=== PATIENT | female | born 1945 | race Caucasian/White ===

== ENCOUNTER 2020-07-15 14:45 | Outpatient (CLI) | payer MEDICARE, MEDICAID, SELFPAY ==
[2020-07-15 16:12] LABS: Basophils Absolute Auto 0.1 K/mm3 (0.0-0.1); Basophils Percent Auto 0.8 % (0.2-1.2); Eosinophils Absolute Auto 0.2 K/mm3 (0-0.3); Eosinophils Percent Auto 2.4 % (0-4.4); Hematocrit 38.5 % (37.0-47.0); Hemoglobin 12.6 g/dL (12.0-15.0); Immature Granulocyte Absolute 0.06 K/mm3 (0.00-0.031); Immature Granulocyte Percent A 0.7 % (0-0.5); Lymphocytes Absolute Auto 1.76 K/mm3 (0.9-3.2); Lymphocytes Percent Auto 19.2 % (18.3-44.2); Mean Corpuscular HGB Conc 32.7 g/dl (32-36); Mean Corpuscular Hemoglobin 30.1 pg (26-34); Mean Corpuscular Volume 92.1 fl (80-100); Mean Platelet Volume 9.7 fl (7.4-10.4); Monocytes Absolute Auto 0.4 K/mm3 (0.1-0.6); Monocytes Percent Auto 4.1 % (2.6-8.5); Neutrophils Absolute Auto 6.7 K/mm3 (1.3-6.7); Neutrophils Percent Auto 72.8 % (45.5-73.1); Platelet Count Result 257 k/mm3 (150-375); Red Blood Count 4.18 M/mm3 (4.2-5.4); Red Cell Distribution Width 13.9 % (11.5-14.5); White Blood Count 9.2 K/mm3 (4.5-10.0)
[2020-07-15 16:58] LABS: Cholesterol 214 mg/dL (0-200); HDL Direct 44 mg/dL; Phosphorus 4.3 mg/dL (2.5-4.5); Triglycerides 170 mg/dL (<150)
[2020-07-15 17:09] LABS: LDL Cholesterol Direct 142 mg/dL
[2020-07-15 17:17] LABS: Alanine Aminotransferase 20 U/L (4-35); Albumin Level 3.6 g/dL (3.5-5.1); Alkaline Phosphatase 79 U/L (38-126); Anion Gap 9 mmol/L (8-16); Aspartate Amino Transferase 24 U/L (14-36); Bilirubin,Total 0.4 mg/dL (0.2-1.3); Blood Urea Nitrogen 18 mg/dL (7-17); Calcium 9.1 mg/dL (8.4-10.2); Carbon Dioxide 31 mmol/L (22-30); Chloride 101 mmol/L (98-107); Estimated Glomerular Filt Rate 54; Glucose 263 mg/dL (65-105); Potassium 4.3 mmol/L (3.4-5.0); Sodium 141 mmol/L (137-145)
[2020-07-15 18:33] LABS: Parathyroid Intact 121.7 pg/mL (7.5-53.5)
[2020-07-15 18:49] LABS: Hemoglobin A1C 8.5 % (<5.7)
[2020-07-17 04:49] LABS: Ionized Calcium 4.8 mg/dL (4.8-5.6)
[2020-07-18 11:56] LABS: Vitamin D 1,25 (OH)2 Total 49 pg/mL (18-72); Vitamin D2 1,25 (OH)2 <8 pg/mL; Vitamin D3 1,25 (OH)2 49 pg/mL
== END 2020-07-15 14:46 | disposition home or self-care (01) ==
LOC: ANHLAB 14:50
PROVIDERS: PCP Internal Medicine; Visit Provider Internal Medicine Endocrinology, Diabetes & Metabolism
DX: E11.41 Type 2 diabetes mellitus with diabetic mononeuropathy (principal); Z79.4 Long term (current) use of insulin; H11.31 Conjunctival hemorrhage, right eye; E21.3 Hyperparathyroidism, unspecified
CPT/HCPCS: 36415; 80053; 80061; 82306; 82330; 82652; 83036; 83970; 84100; 85025

== ENCOUNTER → 2021-01-14 10:20 | Outpatient (REF) | payer MEDICARE, MEDICAID, SELFPAY | LOC: ANHLAB 10:20 | PROVIDERS: PCP Internal Medicine; Visit Provider Nurse Practitioner | DX: D22.5 Melanocytic nevi of trunk (principal) | CPT/HCPCS: 88305 ==

== ENCOUNTER 2021-01-17 10:27 | Outpatient (CLI) | payer MEDICARE, MEDICAID, SELFPAY ==
[2021-01-17 10:58] LABS: Basophils Absolute Auto 0.1 K/mm3 (0.0-0.1); Basophils Percent Auto 0.6 % (0.2-1.2); Eosinophils Absolute Auto 0.3 K/mm3 (0-0.3); Eosinophils Percent Auto 3.6 % (0-4.4); Hematocrit 35.6 % (37.0-47.0); Hemoglobin 11.3 g/dL (12.0-15.0); Immature Granulocyte Absolute 0.07 K/mm3 (0.00-0.031); Immature Granulocyte Percent A 0.7 % (0-0.5); Lymphocytes Absolute Auto 1.48 K/mm3 (0.9-3.2); Lymphocytes Percent Auto 15.5 % (18.3-44.2); Mean Corpuscular HGB Conc 31.7 g/dl (32-36); Mean Corpuscular Hemoglobin 29.4 pg (26-34); Mean Corpuscular Volume 92.7 fl (80-100); Mean Platelet Volume 9.8 fl (7.4-10.4); Monocytes Absolute Auto 0.6 K/mm3 (0.1-0.6); Monocytes Percent Auto 6.2 % (2.6-8.5); Neutrophils Percent Auto 73.4 % (45.5-73.1); Platelet Count Result 270 k/mm3 (150-375); Red Blood Count 3.84 M/mm3 (4.2-5.4); Red Cell Distribution Width 13.9 % (11.5-14.5); White Blood Count 9.5 K/mm3 (4.5-10.0)
[2021-01-17 11:10] LABS: Alanine Aminotransferase 13 U/L (4-35); Albumin Level 3.4 g/dL (3.5-5.1); Alkaline Phosphatase 70 U/L (38-126); Anion Gap 3 mmol/L (8-16); Aspartate Amino Transferase 21 U/L (14-36); Bilirubin,Total 0.3 mg/dL (0.2-1.3); Blood Urea Nitrogen 16 mg/dL (7-17); Calcium 8.5 mg/dL (8.4-10.2); Carbon Dioxide 35 mmol/L (22-30); Chloride 98 mmol/L (98-107); Cholesterol 209 mg/dL (0-200); Estimated Glomerular Filt Rate > 60; Glucose 278 mg/dL (65-105); HDL Direct 41 mg/dL; Potassium 4.5 mmol/L (3.4-5.0); Sodium 136 mmol/L (137-145); Triglycerides 127 mg/dL (<150)
[2021-01-17 11:21] LABS: LDL Cholesterol Direct 133 mg/dL
== END 2021-01-17 10:28 | disposition home or self-care (01) ==
LOC: ANHLAB 10:31
PROVIDERS: PCP Internal Medicine; Visit Provider Internal Medicine
DX: E03.9 Hypothyroidism, unspecified (principal); E11.9 Type 2 diabetes mellitus without complications; I10 Essential (primary) hypertension; E11.41 Type 2 diabetes mellitus with diabetic mononeuropathy; Z79.4 Long term (current) use of insulin; I25.10 Atherosclerotic heart disease of native coronary artery without angina pectoris; F33.0 Major depressive disorder, recurrent, mild; I48.0 Paroxysmal atrial fibrillation; E78.5 Hyperlipidemia, unspecified
CPT/HCPCS: 36415; 80053; 80061; 83036; 84443; 85025

== ENCOUNTER 2021-02-18 10:33 | Outpatient (CLI) | payer MEDICARE, MEDICAID, SELFPAY ==
--- NOTE | ~2021-02-18 | CT_ITS ---
EXAMINATION:CT diagnostic chest wo con DATE: 02/18/2021 11:12 INDICATION: Other specified symptoms and signs involving the circulatory and respiratory systems. TECHNIQUE: Computed tomography (CT) of the chest was performed without intravenous contrast. Automate d exposure control and iterative reconstruction technique were employed. The dose-length product (DLP ) was 213.61 mGy-cm. COMPARISON: Chest CT 02/20/2013, CT abdomen and pelvis 08/27/2017 FINDINGS: There is mosaic attenuation in the lungs, likely small airways disease. There are mild grou ndglass opacities involving all lobes. There is mild chronic peripheral septal thickening in the infe rior lungs. There is mild atelectasis in all lobes, worst in right upper lobe. No bronchiectasis or h oneycombing. A calcified right lung nodule and calcified right hilar and mediastinal lymph nodes are consistent with old granulomatous disease. No pleural effusion. Cardiomegaly is noted. There are aly nary artery calcifications. There are calcifications of aortic valve. No pericardial effusion. There is a left chest wall pacer with leads in the right atrium and right ventricle. The central pulmonary arteries are enlarged, consistent with pulmonary arterial hypertension. There is a small sliding hiat al hernia. Calcifications in the spleen are consistent with old granulomatous disease. There are guerra ges of cholecystectomy. There is severe thoracic spondylosis. IMPRESSION: 1. Worsened chronic diffuse lung disease, likely chronic hypersensitivity pneumonitis or post-infecti ous constrictive bronchiolitis. 2. Cardiomegaly. 3. Small sliding hiatal hernia. Reviewed, dictated and finalized at location A. IMPRESSION: 1. Worsened chronic diffuse lung disease, likely chronic hypersensitivity pneum onitis or post-infectious constrictive bronchiolitis. 2. Cardiomegaly. 3. Small sliding hiatal hernia.
== END 2021-02-18 10:34 | disposition home or self-care (01) ==
PROVIDERS: PCP Internal Medicine; Visit Provider Nurse Practitioner Family
DX: I51.7 Cardiomegaly (principal); K44.9 Diaphragmatic hernia without obstruction or gangrene; I25.10 Atherosclerotic heart disease of native coronary artery without angina pectoris
CPT/HCPCS: 71250

== ENCOUNTER 2021-03-04 11:25 | Outpatient (CLI) | payer MEDICARE, MEDICAID, SELFPAY ==
[2021-03-04 12:14] LABS: Albumin Level 3.5 g/dL (3.5-5.1); Anion Gap 5 mmol/L (8-16); Blood Urea Nitrogen 24 mg/dL (7-17); Calcium 8.7 mg/dL (8.4-10.2); Carbon Dioxide 33 mmol/L (22-30); Chloride 98 mmol/L (98-107); Estimated Glomerular Filt Rate 40; Glucose 274 mg/dL (65-105); Phosphorus 4.4 mg/dL (2.5-4.5); Potassium 4.4 mmol/L (3.4-5.0); Sodium 136 mmol/L (137-145)
[2021-03-04 12:26] LABS: Creatinine Urine 89.5 mg/dL; Total Protein Urine Random 14 mg/dL; Ur Ttl Prot Creatinine Ratio 0.16 mg/mg (0-0.20)
== END 2021-03-04 11:26 | disposition home or self-care (01) ==
PROVIDERS: PCP Internal Medicine; Visit Provider Internal Medicine Nephrology
DX: R80.1 Persistent proteinuria, unspecified (principal)
CPT/HCPCS: 36415; 80069; 82570; 84156

== ENCOUNTER 2021-03-28 09:02 | Outpatient (RCR) | payer MEDICARE, MEDICAID, SELFPAY ==
[2021-03-28 13:51] VITALS: BMI 32.9
== END 2021-05-06 12:18 | disposition home or self-care (01) ==
LOC: ANHWOC 09:02
PROVIDERS: PCP Internal Medicine; Visit Provider Internal Medicine
DX: I83.028 Varicose veins of left lower extremity with ulcer other part of lower leg (principal); L97.821 Non-pressure chronic ulcer of other part of left lower leg limited to breakdown of skin
CPT/HCPCS: 99212; G0463

== ENCOUNTER 2021-05-20 09:54 | Outpatient (CLI) | payer MEDICARE, MEDICAID, SELFPAY ==
--- NOTE | ~2021-05-20 | CT_ITS ---
EXAMINATION: CT diagnostic chest wo con EXAM DATE: 05/20/2021 10:38 INDICATION: COPD. Other disorders of lung . TECHNIQUE: Spiral CT of the chest without contrast. Axial, coronal and sagittal images of the chest were reviewed. Coronal maximum intensity pixel images of chest reviewed. The dose-length product ( DLP) for this examination was 245.21 mGy-cm. The exposure was tailored according to patient size (au to mA exposure control), and iterative reconstruction (ASIR) was used as additional dose reduction te chnique. Comparison is made to prior examination from 02/18/2021. FINDINGS: There is mild bronchiectasis. Unchanged chronic mosaic attenuation involving both lungs. T his is suspected to be most likely air trapping, small airways disease. Differential diagnosis for t his includes air trapping (asthma, bronchiolitis obliterans), vasculitis, or groundglass opacity. Gr oundglass opacity can be caused acutely by edema, infection (PCP in an immunocompromised patients) or hemorrhage. It can also be caused by chronic processes such as hypersensitivity pneumonitis, nonspe cific interstitial pneumonitis (NSIP), cryptogenic organized pneumonia, desquamative interstitial pne umonitis(DIP). Right upper lobe calcified granuloma. No suspicious pulmonary nodules. There are no pleural or perica rdial effusions. Tracheobronchial tree is patent. There is no mediastinal, hilar or axillary lymp hadenopathy. There is no pneumothorax. Heart normal in size. There are dense coronary arteries, could be severe coronary arterial sclerosis and/or coronary artery stent(s), which are difficult to distinguish due to cardiac motion on this non-gated exam. Correlate with cardiac history. Cholecyste ctomy clips. There is thoracic spondylosis without osteoblastic or osteolytic lesions identified. IMPRESSION: 1. Unchanged mosaic attenuation probably air trapping but some other considerations above. 2. Mild bronchiectasis. Reviewed, dictated and finalized at location A. IMPRESSION: 1. Unchanged mosaic attenuation probably air trapping but some other considera tions above. 2. Mild bronchiectasis.
== END 2021-05-20 09:55 | disposition home or self-care (01) ==
PROVIDERS: PCP Internal Medicine; Visit Provider Nurse Practitioner Family
DX: J98.4 Other disorders of lung (principal); Z86.16 Personal history of COVID-19; J47.9 Bronchiectasis, uncomplicated; R91.8 Other nonspecific abnormal finding of lung field
CPT/HCPCS: 71250

== ENCOUNTER 2021-05-29 12:58 | Outpatient (CLI) | payer MEDICARE, MEDICAID, SELFPAY ==
[2021-05-29 13:20] VITALS: O2SAT 98
[2021-05-29 13:25] VITALS: O2SAT 99
[2021-05-29 13:30] VITALS: O2SAT 95
--- NOTE | 2021-05-29 14:16 | HOMEO2EVAL ---
Evaluation was performed at [facility] Home Oxygen Evaluation RC: Home Oxygen (O2) Evaluation Start: 05/29/21 14:14 Freq: Status: Active Protocol: RPE Activity Type Activity Date Activity User E-Sign Co-Sign Detail Recorded Client Recorded Date Recorded By Document 05/29/21 13:20 NALINI [id number] 05/29/21 14:16 NALINI Document 05/29/21 13:25 NALINI [id number] 05/29/21 14:16 NALINI Document 05/29/21 13:30 NALINI [id number] 05/29/21 14:16 NALINI 05/29/21 05/29/21 05/29/21 13:20 13:25 13:30 Home O2 Evaluation Test Phase Resting Exercise Resting Oxygen Delivery Room Air Room Air Room Air Pulse Oximetry (90-100 %) 98 99 95 Home Oxygen Evaluation Comments Pt walked 200 feet, stopped and sat down at 100 feet. SOB and weak Treatment Charges O2 Evaluation - Outpatient
--- NOTE | 2021-05-29 16:41 | WPDPFTINT ---
PFT Procedure Performed PFT Procedure Performed Spirometry with Pre/Post Bronchodilator Plethysmography (Lung Vol) Flow Vol Loop PFT Interpretation This is a pulmonary function test with pre and post-bronchodilator spirometry and plethysmography. The test was performed and results interpreted in accordance with the 2019 and 2005 ATS/ERS Task Force guidelines respectively using the Global Lung Function Initiative-2012 reference equations. Patient demonstrated good effort and cooperation. Reproducibility criteria were met. The quality of the pre bronchodilator spirometry maneuver was Grade A and post bronchodilator spirometry maneuver was Grade A. of note the patient was unable to complete the DLCO maneuver. Findings: Spirometry: The contour the inspiratory and expiratory flow tracing are normal. The pre bronchodilator FVC is 1.83 L, 78% predicted. The pre bronchodilator FEV1 is 1.50 L, 82% predicted. The FEV1: FVC ratio is 82%. The post bronchodilator FVC is 1.81 L, representing a 1% decrease. The post bronchodilator FEV1 is 1.51 L, representing 1% increase. Plethysmography: The total lung capacity is 4.38 L, 95% predicted. Functional residual capacity is 2.98 L, 113% predicted. The residual volume is 2.33 L, 107% predicted. In comparison to prior pulmonary function test performed on 02/24/2016 the post bronchodilator FVC is unchanged from 2.08-1.81 L. The post bronchodilator FEV1 is unchanged from 1.76 L to 1.51 L. The total lung capacity has increased from 3.54 L to 4.38 L. The functional residual capacity has increased from 2.15 L to 2.98 L. The residual volume has increased from 1.41 L to 2.33 L. Impression: The spirometry is normal without evidence of an obstructive abnormality. There is no significant improvement after inhaling a single dose of albuterol. The lung volumes are normal. in comparison to prior pulmonary function test on 02/24/2016 there has been a greater than anticipated time dependent increase in total lung capacity, functional residual capacity and residual volume with no change in the post bronchodilator FVC or FEV1. Clinical correlation is recommended. There are no prior studies for comparison
== END 2021-05-29 12:59 | disposition home or self-care (01) ==
LOC: ANHPFT 12:59
PROVIDERS: PCP Internal Medicine; Visit Provider Nurse Practitioner Family
DX: R09.02 Hypoxemia (principal); R06.00 Dyspnea, unspecified; Z86.16 Personal history of COVID-19
CPT/HCPCS: 94060; 94618; 94726

== ENCOUNTER 2021-11-06 05:30 | Emergency (ER) | payer MEDICARE, MEDICAID, SELFPAY ==
--- NOTE | ~2021-11-06 | XR_ITS ---
EXAMINATION: XR knee RT 3V DATE: 11/06/2021 05:56 INDICATION: Right knee injury. TECHNIQUE: 3 views of right knee were obtained. COMPARISON: None. FINDINGS: Bone alignment is normal. No fracture. There is diffuse osteopenia. There is mild osteoarth ritis of medial and lateral compartments and moderate osteoarthritis of patellofemoral compartment. N o knee joint effusion. There is a vascular stent in the thigh. IMPRESSION: 1. Moderate right knee osteoarthritis. Reviewed, dictated and finalized at location E. MAN
--- NOTE | ~2021-11-06 | XR_ITS ---
EXAMINATION: XR knee LT 3V DATE: 11/06/2021 05:56 INDICATION: Left knee injury. TECHNIQUE: 3 views of left knee were obtained. COMPARISON: None. FINDINGS: Bone alignment is normal. No fracture. There is diffuse osteopenia. There is mild osteoarth ritis of medial and lateral compartments and moderate osteoarthritis of patellofemoral compartment. N o knee joint effusion. IMPRESSION: 1. Moderate left knee osteoarthritis. Reviewed, dictated and finalized at location E. 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
--- NOTE | 2021-11-06 05:30 | ECG_ITS ---
Measurements Intervals [place] Rate: 81 P: 166 FL: 187 QRS: 1 QRSD: 99 T: 44 QT: 408 QTc: 474 Interpretive Statements ELECTRONIC ATRIAL PACEMAKER BORDERLINE R WAVE PROGRESSION, ANTERIOR LEADS BASELINE ARTIFACT- I, II, III, AVR, AVL, AVF, V2, V4 BORDERLINE ECG Electronically Signed On 11-06-2021 9:15:12 RECORD KEEPER by Melecio Joseph D.O.
[2021-11-06 05:32] VITALS: BP 129/88; PULSE 78; RESP 17; TEMP 36.4; O2SAT 98
[2021-11-06 05:59] LABS: Basophils Percent Auto 0.6 % (0.2-1.2); Eosinophils Absolute Auto 0.1 K/mm3 (0-0.3); Eosinophils Percent Auto 1.4 % (0-4.4); Hematocrit 28.3 % (37.0-47.0); Hemoglobin 8.7 g/dL (12.0-15.0); Immature Granulocyte Absolute 0.07 K/mm3 (0.00-0.031); Lymphocytes Absolute Auto 1.17 K/mm3 (0.9-3.2); Lymphocytes Percent Auto 16.2 % (18.3-44.2); Mean Corpuscular HGB Conc 30.7 g/dl (32-36); Mean Corpuscular Hemoglobin 29.9 pg (26-34); Mean Corpuscular Volume 97.3 fl (80-100); Mean Platelet Volume 9.5 fl (7.4-10.4); Monocytes Absolute Auto 0.3 K/mm3 (0.1-0.6); Monocytes Percent Auto 4.6 % (2.6-8.5); Neutrophils Absolute Auto 5.5 K/mm3 (1.3-6.7); Neutrophils Percent Auto 76.2 % (45.5-73.1); Platelet Count Result 220 k/mm3 (150-375); Red Blood Count 2.91 M/mm3 (4.2-5.4); Red Cell Distribution Width 16.2 % (11.5-14.5); White Blood Count 7.2 K/mm3 (4.5-10.0)
--- NOTE | 2021-11-06 05:59 | ED.FALL ---
HPI - Fall General Chief Complaint: Fall Stated Complaint: pain all over for 2 months s/p fall Time Seen by Provider: 11/06/21 05:34 Source: patient History of Present Illness HPI Narrative: Patient presents with diffuse pain. Patient ports she fell 2 months ago fractured her shoulder and is continue to have pain in that area reports a few days ago being assisted to the bed she fell onto her bilateral knees and now has bilateral leg pain. Pain is achy, constant, radiates lateral body worse with people touching it. Denies any focal numbness or weakness denies any shortness of breath recent cough or fevers. Related Data Home Medications Medication Instructions Recorded Confirmed cholecalciferol (vitamin D3) 125 125 mcg PO DAILY 09/19/19 07/29/21 mcg (5,000 unit) tablet isosorbide mononitrate 60 mg 60 mg PO DAILY 09/19/19 07/29/21 tablet,extended release 24 hr metoprolol tartrate 50 mg tablet 50 mg PO DAILY 03/27/20 07/29/21 ezetimibe 10 mg tablet 10 mg PO DAILY 04/16/20 07/29/21 apixaban 5 mg tablet 5 mg PO BID 11/26/20 07/29/21 loratadine [Claritin] 10 mg PO DAILY 03/28/21 07/29/21 cyanocobalamin (vitamin B-12) 1,000 mcg PO DAILY 06/10/21 07/29/21 1,000 mcg capsule folic acid 1 mg tablet 1 mg PO DAILY 06/10/21 07/29/21 Allergies Allergy/AdvReac Type Severity Reaction Status Date / Time adhesive tape Allergy Unknown Rash Verified 07/29/21 09:55 amitriptyline Allergy Unknown unknown Verified 07/29/21 09:55 nortriptyline Allergy Unknown unknown Verified 07/29/21 09:55 roflumilast Allergy Unknown unknown Verified 07/29/21 09:55 shellfish derived Allergy Unknown unknown Verified 07/29/21 09:55 Bwzwvwo-UKI-JtD Reductase Allergy Unknown unknown Verified 07/29/21 09:55 Inhibitor [Stfsoym-Npp-Kiy Reductase Inhibitor] metoclopramide [From Reglan] Allergy Rash Verified 07/29/21 09:55 CHLORDIAZEPOXIDE HCL Allergy Unknown unknown Uncoded 07/29/21 09:55 METOCLOPRAMIDE HCL Allergy Unknown unknown Uncoded 07/29/21 09:55 Review of Systems Review of Systems: CONSTITUTIONAL: Denies fever, chills, or sweats. EYES: Denies visual changes, redness, or discharge. ENT: Denies rhinorrhea, congestion, sore throat, or otalgia. CARDIOVASCULAR: Denies chest pain, palpitations, or edema. RESPIRATORY: Denies cough or dyspnea. GASTROINTESTINAL: Denies abdominal pain, nausea, vomiting, or diarrhea. GENITOURINARY: Denies dysuria or hematuria. SKIN: Denies rash or itching. MUSCULOSKELETAL: Reports bilateral knee pain NEUROLOGIC: Denies headache, numbness, dizziness, or weakness. PSYCHIATRIC: Denies anxiety or depression. All systems reviewed & are unremarkable except as noted in HPI and below PMFSH Past Medical History Medical History Exposure to COVID-19 virus History of COVID-19 History of pacemaker Sleep apnea Vertigo Surgical History Surgical History History of ankle surgery Metal in ankle History of cholecystectomy History of heart artery stent History of hysterectomy Family History Family History Mother Cerebrovascular accident Family history of diabetes mellitus in first degree relative Hypertension Family history of chronic obstructive pulmonary disease Family history of congestive heart failure Father Malignant neoplasm of prostate Family history of malignant neoplasm of bone Diabetes mellitus Sibling Family history of diabetes mellitus in first degree relative Family history of malignant neoplasm of breast in first degree relative Other Family history of Alzheimer's disease Family history of Parkinson's disease Family history of kidney disease Family history of malignant neoplasm Family history of malignant neoplasm of breast Family history of throat cancer Social History Social History (Reviewed 11/06/21
[2021-11-06] MEDS: KETOROLAC 15 MG/ML VIAL (*BKC) IV PUSH (06:06)
[2021-11-06 06:17] LABS: Add Urine Microscopic? NO; Appearance Urine Clear (Clear); Bilirubin Urine Negative (Negative); Blood Urine Negative (Negative); Color Urine Yellow (Yellow); Glucose Urine UA Negative (Negative); Ketones Urine Negative (Negative); Leukocyte Esterase Ur Negative LEU/UL (Negative); Nitrate Urine Negative (Negative); Protein Urine Negative (Negative); Specific Grav Ur 1.011 (1.001-1.035); Urobilinogen Urine Negative mg/dL (<2.0)
[2021-11-06 06:53] LABS: Alanine Aminotransferase 8 U/L (4-35); Albumin Level 2.8 g/dL (3.5-5.1); Alkaline Phosphatase 126 U/L (38-126); Anion Gap 6 mmol/L (8-16); Aspartate Amino Transferase 15 U/L (14-36); Bilirubin,Total 0.4 mg/dL (0.2-1.3); Blood Urea Nitrogen 22 mg/dL (7-17); Calcium 7.9 mg/dL (8.4-10.2); Carbon Dioxide 27 mmol/L (22-30); Chloride 103 mmol/L (98-107); Estimated CRCL calculation 44 ml/min; Estimated Glomerular Filt Rate > 60; Glucose 275 mg/dL (65-110); Potassium 4.3 mmol/L (3.4-5.0); Sodium 136 mmol/L (137-145)
[2021-11-06 07:19] VITALS: BP 135/71; PULSE 80; RESP 15; O2SAT 98
[2021-11-06 07:29] VITALS: O2SAT 96
[2021-11-06 08:40] VITALS: BP 127/78; PULSE 75; RESP 16; O2SAT 98
== END 2021-11-06 08:42 ==
PROVIDERS: Emergency Provider Emergency Medicine; PCP Internal Medicine
DX: M25.561 Pain in right knee (principal); M25.562 Pain in left knee; Z86.16 Personal history of COVID-19; Z95.0 Presence of cardiac pacemaker; G47.30 Sleep apnea, unspecified; Z95.5 Presence of coronary angioplasty implant and graft; M17.0 Bilateral primary osteoarthritis of knee; R94.31 Abnormal electrocardiogram [ECG] [EKG]
CPT/HCPCS: 36415; 73562; 80053; 81003; 85025; 93005; 96374; 99284; J1885

== ENCOUNTER 2021-11-21 08:41 | Outpatient (CLI) | payer MEDICARE, MEDICAID, SELFPAY ==
[2021-11-21 09:27] LABS: Basophils Percent Auto 0.5 % (0.2-1.2); Eosinophils Absolute Auto 0.5 K/mm3 (0-0.3); Eosinophils Percent Auto 5.9 % (0-4.4); Hematocrit 31.9 % (37.0-47.0); Hemoglobin 9.5 g/dL (12.0-15.0); Immature Granulocyte Absolute 0.03 K/mm3 (0.00-0.031); Immature Granulocyte Percent A 0.4 % (0-0.5); Lymphocytes Absolute Auto 1.06 K/mm3 (0.9-3.2); Lymphocytes Percent Auto 13.5 % (18.3-44.2); Mean Corpuscular HGB Conc 29.8 g/dl (32-36); Mean Corpuscular Hemoglobin 28.1 pg (26-34); Mean Corpuscular Volume 94.4 fl (80-100); Mean Platelet Volume 8.9 fl (7.4-10.4); Monocytes Absolute Auto 0.5 K/mm3 (0.1-0.6); Monocytes Percent Auto 6.4 % (2.6-8.5); Neutrophils Absolute Auto 5.8 K/mm3 (1.3-6.7); Neutrophils Percent Auto 73.3 % (45.5-73.1); Platelet Count Result 277 k/mm3 (150-375); Red Blood Count 3.38 M/mm3 (4.2-5.4); Red Cell Distribution Width 16.2 % (11.5-14.5); White Blood Count 7.9 K/mm3 (4.5-10.0)
[2021-11-21 09:37] LABS: Albumin Level 3.3 g/dL (3.5-5.1); Alkaline Phosphatase 174 U/L (38-126); Anion Gap 2 mmol/L (8-16); Aspartate Amino Transferase 15 U/L (14-36); Bilirubin,Total 0.6 mg/dL (0.2-1.3); Blood Urea Nitrogen 11 mg/dL (7-17); Calcium 8.4 mg/dL (8.4-10.2); Carbon Dioxide 39 mmol/L (22-30); Chloride 97 mmol/L (98-107); Estimated Glomerular Filt Rate > 60; Glucose 90 mg/dL (65-110); Sodium 138 mmol/L (137-145)
[2021-11-21 09:57] LABS: Iron 30 ug/dL (37-170)
[2021-11-21 10:06] LABS: Percent Iron Saturation 9 % (20-50)
[2021-11-21 10:40] LABS: Vitamin B12 > 1000.0 pg/mL (239-931)
[2021-11-21 10:51] LABS: Folic Acid > 20.0 ng/mL (2.76->20)
[2021-11-21 11:58] LABS: Alanine Aminotransferase < 6 U/L (4-35)
[2021-11-21 12:45] LABS: Hemoglobin A1C 6.3 % (<5.7)
== END 2021-11-21 08:42 | disposition home or self-care (01) ==
LOC: ANHLAB 08:47
PROVIDERS: PCP Internal Medicine; Visit Provider Internal Medicine
DX: E11.41 Type 2 diabetes mellitus with diabetic mononeuropathy (principal); N39.0 Urinary tract infection, site not specified; D64.9 Anemia, unspecified; Z51.81 Encounter for therapeutic drug level monitoring; Z79.4 Long term (current) use of insulin
CPT/HCPCS: 36415; 80053; 82607; 82728; 82746; 83036; 83540; 83550; 85025

== ENCOUNTER 2021-12-16 18:22 | Emergency (ER) | payer MEDICARE, MEDICAID, SELFPAY ==
--- NOTE | ~2021-12-16 | CT_ITS ---
EXAMINATION: CT abdomen pelvis w con DATE: 12/16/2021 21:06 INDICATION: lower abdominal pain, diverticulitis TECHNIQUE: Computed tomography (CT) of the abdomen and pelvis was performed with 100 mL Omnipaque-350 intravenous contrast. Automated exposure control and iterative reconstruction technique were employe d. The dose-length product was 951.87 mGy-cm. COMPARISON: CT abdomen and pelvis 08/27/2017. CT chest 05/20/2021. FINDINGS: Lower thorax: Senescent changes and bibasilar atelectasis. Mosaic attenuation (see prior chest CT rep ort for discussion). Heavy coronary artery calcification. Incompletely visualized pacemaker leads. Ca lcification of the mitral annulus and aortic valves. Liver: 16 mm, somewhat ill-defined hypodensity in the peripheral portion of the right liver lobe (seg ment 8), measuring greater than 20 Hounsfield units. Biliary/Gallbladder: Gallbladder is absent. No bile duct dilation. Spleen: Granulomatous calcifications. Pancreas: No mass or duct dilation. Atrophy. Adrenals:No mass. Kidneys: No mass, stone, or hydronephrosis. GI tract: No small or large bowel dilation. Normal appendix. Diverticulosis without evidence of diver ticulitis. Mesentery/Peritoneum: No ascites, mass, or free air. Retroperitoneum: No mass. Heavy atherosclerotic calcification of the abdominal aorta and its branches . Pelvis: Uterus is atrophic or surgically absent. Benign left adnexal cyst. Bladder wall thickening. Bones/Soft Tissues: Lipomatous mass in the left paraspinal muscles spanning roughly T12-L2 and measur ing up to 8.2 cm in greatest diameter. Additional Findings: None. IMPRESSION: No CT evidence of diverticulitis. Bladder wall thickening as can be seen with cystitis. 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 Likely 16mm segment 8 liver cyst, consider nonemergent limited abdominal ultrasound for further evaluation, or nonemergent MRI of the liver if the patient has a history of primary malignancy or hepatic dysfunc tion. Reviewed, dictated and finalized at location K. IMPRESSION: No CT evidence of diverticulitis. Bladder wall thickening as can be seen with c ystitis. 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 Likely 16mm segment 8 liver cyst, consider nonemergent limited abdominal ultrasound for further evaluation, or nonemergen t MRI of the liver if the patient has a history of primary malignancy or hepati c dysfunction.
[2021-12-16 19:31] VITALS: BP 137/70; PULSE 77; RESP 18; TEMP 36.5; O2SAT 100
[2021-12-16 19:54] LABS: Basophils Percent Auto 0.4 % (0.2-1.2); Eosinophils Absolute Auto 0.1 K/mm3 (0-0.3); Eosinophils Percent Auto 1.7 % (0-4.4); Hematocrit 34.9 % (37.0-47.0); Hemoglobin 10.7 g/dL (12.0-15.0); Immature Granulocyte Absolute 0.03 K/mm3 (0.00-0.031); Immature Granulocyte Percent A 0.4 % (0-0.5); Lymphocytes Absolute Auto 1.72 K/mm3 (0.9-3.2); Lymphocytes Percent Auto 21.4 % (18.3-44.2); Mean Corpuscular HGB Conc 30.7 g/dl (32-36); Mean Corpuscular Hemoglobin 26.5 pg (26-34); Mean Corpuscular Volume 86.4 fl (80-100); Mean Platelet Volume 9.4 fl (7.4-10.4); Monocytes Absolute Auto 0.4 K/mm3 (0.1-0.6); Monocytes Percent Auto 5.4 % (2.6-8.5); Neutrophils Absolute Auto 5.7 K/mm3 (1.3-6.7); Neutrophils Percent Auto 70.7 % (45.5-73.1); Platelet Count Result 262 k/mm3 (150-375); Red Blood Count 4.04 M/mm3 (4.2-5.4); Red Cell Distribution Width 15.6 % (11.5-14.5)
[2021-12-16 20:06] LABS: Alanine Aminotransferase 8 U/L (4-35); Albumin Level 3.5 g/dL (3.5-5.1); Alkaline Phosphatase 142 U/L (38-126); Anion Gap 2 mmol/L (8-16); Aspartate Amino Transferase 18 U/L (14-36); Bilirubin,Total 0.4 mg/dL (0.2-1.3); Blood Urea Nitrogen 26 mg/dL (7-17); Calcium 8.5 mg/dL (8.4-10.2); Carbon Dioxide 33 mmol/L (22-30); Chloride 97 mmol/L (98-107); Estimated Glomerular Filt Rate 54; Glucose 286 mg/dL (65-110); Lipase 30 U/L (23-300); Potassium 4.4 mmol/L (3.4-5.0); Sodium 132 mmol/L (137-145)
--- NOTE | 2021-12-16 20:38 | PC.NURSE ---
Dr. López at bedside for pt assessment.
[2021-12-16 21:00] VITALS: O2SAT 100
[2021-12-16] MEDS: SODIUM CHLORIDE 0.9% IV 1,000 ML 999 ML IV CONT (21:03)
[2021-12-16] MEDS: ONDANSETRON INJ 4 MG/2 ML VIAL IV PUSH (21:04)
[2021-12-16 21:15] VITALS: BP 144/54; PULSE 78; RESP 18; O2SAT 100
--- NOTE | 2021-12-16 21:48 | ED.ABDPAIN ---
HPI - Abdominal Pain General Chief Complaint: Abdominal Pain Stated Complaint: abd pain Time Seen by Provider: 12/16/21 20:32 Source: patient, RN notes reviewed and old records reviewed Mode of arrival: ambulatory Limitations: no limitations History of Present Illness HPI narrative: This is 76 year old female with history of COPD, hypertension, DM, CHF , PVD who presents for evaluation of nausea and vomiting. Patient has been having nausea, vomiting and lower abdominal pain for 5 days. She was diagnosed with diverticulitis 5 days ago, and she was started on antibiotics. She states she has continued to have nausea, vomiting and diarrhea. She was told to come to ER because of her diverticulitis. She reports no improvement in her abdominal pain. She denies fever or chills. Related Data Home Medications Medication Instructions Recorded Confirmed cholecalciferol (vitamin D3) 125 125 mcg PO DAILY 09/19/19 11/21/21 mcg (5,000 unit) tablet isosorbide mononitrate 60 mg 60 mg PO DAILY 09/19/19 11/21/21 tablet,extended release 24 hr metoprolol tartrate 50 mg tablet 50 mg PO DAILY 03/27/20 11/21/21 ezetimibe 10 mg tablet 10 mg PO DAILY 04/16/20 11/21/21 apixaban 5 mg tablet 5 mg PO BID 11/26/20 11/21/21 loratadine [Claritin] 10 mg PO DAILY 03/28/21 11/21/21 cyanocobalamin (vitamin B-12) 1,000 mcg PO DAILY 06/10/21 11/21/21 1,000 mcg capsule folic acid 1 mg tablet 1 mg PO DAILY 06/10/21 11/21/21 Allergies Allergy/AdvReac Type Severity Reaction Status Date / Time adhesive tape Allergy Unknown Rash Verified 12/16/21 19:36 amitriptyline Allergy Unknown unknown Verified 12/16/21 19:36 nortriptyline Allergy Unknown unknown Verified 12/16/21 19:36 roflumilast Allergy Unknown unknown Verified 12/16/21 19:36 shellfish derived Allergy Unknown unknown Verified 12/16/21 19:36 Hokdakb-HKZ-YvH Reductase Allergy Unknown unknown Verified 12/16/21 19:36 Inhibitor [Xqlbvvp-Pjs-Rjf Reductase Inhibitor] metoclopramide [From Reglan] Allergy Rash Verified 12/16/21 19:36 CHLORDIAZEPOXIDE HCL Allergy Unknown unknown Uncoded 12/16/21 19:36 METOCLOPRAMIDE HCL Allergy Unknown unknown Uncoded 12/16/21 19:36 Review of Systems Review of Systems: All systems reviewed & are unremarkable except as noted in HPI and below PMFSH Past Medical History Medical History Broken shoulder Drop foot gait Exposure to COVID-19 virus History of COVID-19 History of pacemaker Sleep apnea Vertigo Surgical History Surgical History History of ankle surgery Metal in ankle History of cholecystectomy History of heart artery stent History of hysterectomy Family History Family History Mother Cerebrovascular accident Family history of diabetes mellitus in first degree relative Hypertension Family history of chronic obstructive pulmonary disease Family history of congestive heart failure Father Malignant neoplasm of prostate Family history of malignant neoplasm of bone Diabetes mellitus Sibling Family history of diabetes mellitus in first degree relative Family history of malignant neoplasm of breast in first degree relative Other Family history of Alzheimer's disease Family history of Parkinson's disease Family history of kidney disease Family history of malignant neoplasm Family history of malignant neoplasm of breast Family history of throat cancer Social History Social History Second hand tobacco smoke exposure: No Alcohol intake: never Substance use: never Substance use type: does not use Gender identity (if verbalized by the patient): Female Sexual Orientation (if Verbalized by the Patient): Straight or Heterosexual Exam Const: General: alert and ill a
[2021-12-16 22:07] VITALS: BP 162/59; PULSE 70; RESP 18; O2SAT 100
[2021-12-16 22:07] LABS: Add Urine Microscopic? NO; Appearance Urine Clear (Clear); Bilirubin Urine Negative (Negative); Blood Urine Negative (Negative); Color Urine Yellow (Yellow); Glucose Urine UA Negative (Negative); Ketones Urine Negative (Negative); Leukocyte Esterase Ur Negative LEU/UL (Negative); Nitrate Urine Negative (Negative); Protein Urine Negative (Negative); Specific Grav Ur 1.029 (1.001-1.035); Urobilinogen Urine Negative mg/dL (<2.0)
[2021-12-16 23:15] VITALS: BP 154/78; PULSE 82; RESP 16; TEMP 36.3; O2SAT 97
== END 2021-12-16 23:17 | disposition home or self-care (01) ==
PROVIDERS: Emergency Medicine; Emergency Provider General Practice; PCP Internal Medicine
DX: R11.2 Nausea with vomiting, unspecified (principal); K57.90 Diverticulosis of intestine, part unspecified, without perforation or abscess without bleeding; J44.9 Chronic obstructive pulmonary disease, unspecified; I11.0 Hypertensive heart disease with heart failure; I50.9 Heart failure, unspecified; E11.51 Type 2 diabetes mellitus with diabetic peripheral angiopathy without gangrene; G47.30 Sleep apnea, unspecified; Z86.16 Personal history of COVID-19; Z90.49 Acquired absence of other specified parts of digestive tract; Z90.710 Acquired absence of both cervix and uterus; Z79.899 Other long term (current) drug therapy; Z88.8 Allergy status to other drugs, medicaments and biological substances; Z91.048 Other nonmedicinal substance allergy status
CPT/HCPCS: 36415; 51701; 74177; 80053; 81003; 83690; 85025; 96361; 96374; 99284; J2405; J7030; Q9967

== ENCOUNTER 2022-03-09 09:04 | Outpatient (CLI) | payer MEDICARE, MEDICAID, SELFPAY ==
--- NOTE | ~2022-03-09 | US_ITS ---
EXAMINATION: US abdomen limited DATE: 03/09/2022 09:38 INDICATION: Indeterminate liver lesion TECHNIQUE: Multiple grayscale and Doppler ultrasound images of the abdomen were obtained. COMPARISON: CT, 12/16/2021 FINDINGS: Bowel gas obscures visualization of the pancreas. There is a 2.0 x 1.8 cm hypoechoic lesion of the right hepatic lobe. No definite posterior features or internal vascularity are identified. No surface nodularity. Normal hepatopetal flow in the main portal vein. The gallbladder is surgically a bsent. The common bile duct measures 7 mm. IMPRESSION: 1. Hypoechoic mass in the right hepatic lobe which remains indeterminate. Follow-up MRI without and w ith contrast is recommended. Reviewed, dictated and finalized at location A. IMPRESSION: 1. Hypoechoic mass in the right hepatic lobe which remains indeterminate. Follo w-up MRI without and with contrast is recommended.
== END 2022-03-09 09:05 | disposition home or self-care (01) ==
PROVIDERS: Visit Provider Nurse Practitioner
DX: R93.2 Abnormal findings on diagnostic imaging of liver and biliary tract (principal); R16.0 Hepatomegaly, not elsewhere classified
CPT/HCPCS: 76705